=== PATIENT | female | born 1980 | race Caucasian/White ===

== ENCOUNTER → 2019-04-30 | Outpatient (CLI) | payer BC ==
[2019-04-30 17:07] LABS: BASO # 0.1 (0.02-0.10); EOS # 0.2 (0.04-0.40); EOS % 2.6 % (1.0-5.0); HEMATOCRIT 45.1 % (37.0-47.0); HEMOGLOBIN 14.9 g/dL (12.5-16.0); LYMPH# 2.7 (1.50-4.00); MEAN CELL VOLUME 91 fl (78-100); MEAN CORPUSCULAR HEMOGLOBIN 30 pg (27-31); MEAN CORPUSCULAR HGB CONC 33 g/dL (33-37); MEAN PLATELET VOLUME 9.1 fl (7.4-10.4); MONO # 0.8 (0.20-0.80); NEU # 5.6 (1.40-6.50); PLATELET COUNT 284 K/mm3 (130-400); RED BLOOD COUNT 4.95 M/mm3 (4.10-5.30); RED CELL DISTRIBUTION WIDTH 12.6 % (11.5-14.5); WHITE BLOOD COUNT 9.3 K/mm3 (4.8-10.8)
[2019-04-30 17:19] LABS: ALBUMIN 4.3 g/dL (3.5-5.0); POTASSIUM 3.7 mmol/L (3.5-5.1)
[2019-04-30 17:20] LABS: CALCIUM 9.2 mg/dL (8.3-10.5)
== END ==
LOC: LAB 16:53
PROVIDERS: Family Medicine
DX: Z00.00 Encounter for general adult medical examination without abnormal findings (principal); E78.5 Hyperlipidemia, unspecified

== ENCOUNTER → 2020-09-27 | Outpatient (CLI) | payer BC ==
[2020-09-27 15:01] LABS: BASO # 0.03 (0.02-0.10); EOS # 0.23 (0.04-0.40); EOS % 2.9 % (1.0-5.0); HEMOGLOBIN 13.5 g/dL (12.5-16.0); LYMPH# 2.33 (1.50-4.00); MEAN CELL VOLUME 91 fl (78-100); MEAN CORPUSCULAR HEMOGLOBIN 30 pg (27-31); MEAN CORPUSCULAR HGB CONC 33 g/dL (33-37); MEAN PLATELET VOLUME 9.2 fl (7.4-10.4); MONO # 0.73 (0.20-0.80); NEU # 4.49 (1.40-6.50); PLATELET COUNT 243 K/mm3 (130-400); RED BLOOD COUNT 4.51 M/mm3 (4.10-5.30); RED CELL DISTRIBUTION WIDTH 11.9 % (11.5-14.5); WHITE BLOOD COUNT 7.8 K/mm3 (4.8-10.8)
[2020-09-27 15:12] LABS: POTASSIUM 3.6 mmol/L (3.5-5.1)
[2020-09-27 15:14] LABS: CALCIUM 8.7 mg/dL (8.3-10.5)
[2020-09-27 15:15] LABS: TOTAL PROTEIN 6.6 g/dL (6.4-8.3)
[2020-09-27 15:17] LABS: TOTAL BILIRUBIN 0.7 mg/dL (0.2-1.2)
== END ==
LOC: LAB 14:51
PROVIDERS: Family Medicine
DX: Z00.00 Encounter for general adult medical examination without abnormal findings (principal); E78.5 Hyperlipidemia, unspecified

== ENCOUNTER → 2020-09-30 | Outpatient (CLI) | payer BC | LOC: MAMMO 09-28 10:43 | DX: N64.52 Nipple discharge (principal) ==

== ENCOUNTER → 2021-02-07 | Outpatient (REF) | LOC: LAB 13:12 | DX: Z20.822 Contact with and (suspected) exposure to COVID-19 (principal) ==